=== PATIENT | male | born 1955 | race Caucasian/White ===

== ENCOUNTER → 2021-08-05 08:25 | Outpatient (BNVA) | payer OTHER, SELFPAY | PROVIDERS: Absent Provider Surgery; Family Provider Emergency Medicine Emergency Medical Services; PCP Emergency Medicine Emergency Medical Services; Visit Provider Surgery | DX: Z20.822 Contact with and (suspected) exposure to COVID-19 (principal); Z11.52 Encounter for screening for COVID-19 | CPT/HCPCS: 87635 ==

== ENCOUNTER 2021-08-11 07:06 | Day surgery (SDC) | payer OTHER, SELFPAY ==
[2021-08-08 10:59] VITALS: BMI 25.6
--- NOTE | 2021-08-11 07:29 | P.ANESASSM_ITS ---
Pre-Anesthetic Assessment Pre-Anesthetic Assessment: Height/Weight: Height 1.83 m Weight 85.729 kg Preop Diagnosis: panendoscopy Proposed Procedure: Operation Date: 08/11/21 08:30 Proposed Procedures p EGD Dilation W/ Balloon 53812 [id number] R13.10 K63.5(Not Applicable) - Abdirahman Ruiz MD s Colonoscopy(Not Applicable) - Abdirahman Ruiz MD Was Beta Zainab taken within 24 hours: N/A Was Clonidine taken within 24 hours: N/A Social: Social History: No alcohol and No tobacco (Smokes occ cigar) Exam: Pre-Anes Outpt Exam: alert, oriented x 3, clear to auscultation bilat erally and regular rate & rhythm Airway: Submandibular: WNL Cervical ROM: WNL MP: 2 Additional comments: Missing several History/ROS: No significant history except as noted GI: Comments: dysphagia, polyps Anesthetic Plan: ASA status: 2 Anesthesia: MAC Risk of > 500 ml blood loss (7ml/kg in children): No PFSH Anesthesia PFSH: Medical History (Updated 07/07/21 @ 09:46 by Abdirahman Ruiz MD) Colon polyps Psoriasis Surgical History (Updated 07/07/21 @ 09:43 by Abdirahman Ruiz MD) History of colonoscopy with polypectomy 2017 History of surgery cyst removal on face 2018 Family History (Updated 07/07/21 @ 09:30 by Bree Mohamud) Other Diabetes Denies family history of CAD (coronary artery disease) Dementia Lung disease Cancer Stroke Social History (Updated 07/07/21 @ 09:30 by Bree Mohamud) Smoking and tobacco status: current some day smoker cigars Second hand smoke exposure: No Alcohol intake: never Data Anesthesia Cardiac Studies: No Data to Display
[2021-08-11 07:48] VITALS: BP 133/77; PULSE 73; RESP 18; TEMP 36.3; O2SAT 97
[2021-08-11] MEDS: sodium chloride 0.9% 1,000 ML 30 ML IV (07:57)
--- NOTE | 2021-08-11 08:28 | P.HP_ITS ---
Same Day Surgery H&P Indication for Procedure/HPI DATE OF PROCEDURE: August 11, 2021 CHIEF COMPLAINT/INDICATIONFOR SURGICAL PROCEDURE: EGD/colonoscopy for dysphagia and colon polyps PREOP DIAGNOSIS: panendoscopy PLANNED PROCEDRUE: Operation Date: 08/11/21 08:30 Proposed Procedures p EGD Dilation W/ Balloon 95101 [id number] R13.10 K63.5(Not Applicable) - Abdirahman Ruiz MD s Colonoscopy(Not Applicable) - Abdirahman Ruiz MD Medications/Allergies* Home Medications Medication Instructions Recorded Confirmed Type apremilast 30 mg tablet 30 mg PO DAILY 07/07/21 08/08/21 History Allergies/Adverse Reactions Allergy/AdvReac Type Severity Reaction Status Date / Time Penicillins Allergy Severe sob,hives Verified 08/11/21 07:47 Current Medications: Generic Name Dose Route Start Last Admin Trade Name Freq PRN Reason Stop Dose Admin Sodium Chloride 1,000 mls @ 30 mls/hr 08/11/21 07:30 08/11/21 07:57 Sodium Chloride 0.9% IV 08/12/21 07:29 30 mls/hr .Q24H DANAE Administration Pertinent History/Comorbid Conditions* Medical History (Updated 07/07/21 @ 09:46 by Abdirahman Ruiz MD) Colon polyps Psoriasis Surgical History (Updated 07/07/21 @ 09:43 by Abdirahman Ruiz MD) History of colonoscopy with polypectomy 2017 History of surgery cyst removal on face 2018 Family History (Updated 07/07/21 @ 09:30 by Bree Mohamud) Diabetes Denies family history of CAD (coronary artery disease) Dementia Lung disease Cancer Stroke Social History Smoking and tobacco status: current some day smoker cigars Second hand smoke exposure: No Alcohol intake: never Pertinent Exam Findings alert, oriented x 3 and regular rate & rhythm Recommendations Surgery/Procedure today Coding Level of Care Code Acute Crime Investigator Special Agent for Bobby Matthews
[2021-08-11 09:23] VITALS: BP 95/68; PULSE 64; RESP 16; TEMP 36.1; O2SAT 92
--- NOTE | 2021-08-11 09:27 | ANE.PACU2 ---
Inpatient post-anesthesia follow up: Airway intact: Yes Vital signs: Temperature 97.4 F Pulse Rate 73 Respiratory Rate 18 Blood Pressure 133/77 Pulse Oximetry 97 Oxygen Delivery Me thod Room Air Oxygen Flow Rate Fraction of Inspir ed Oxygen Hydration adequate: Yes Nausea and vomiting: No Pain level: 1 Mental status: Baseline
[2021-08-11 09:37] VITALS: BP 90/58; PULSE 62; RESP 16; O2SAT 95
== END 2021-08-11 09:53 | disposition home or self-care (01) ==
PROVIDERS: PCP Emergency Medicine Emergency Medical Services; Visit Provider Surgery
PROC: (CPT 43239; principal; 2021-08-11 08:30)
PROC: 0DJD8ZZ Inspection of Lower Intestinal Tract, Via Natural or Artificial Opening Endoscopic (ICD-10-PCS; CPT 45378; 2021-08-11 08:30)
DX: Z86.010 Personal history of colon polyps (principal); R13.10 Dysphagia, unspecified; D12.0 Benign neoplasm of cecum; D12.4 Benign neoplasm of descending colon; K57.30 Diverticulosis of large intestine without perforation or abscess without bleeding; K64.8 Other hemorrhoids; K29.80 Duodenitis without bleeding; K44.9 Diaphragmatic hernia without obstruction or gangrene; K29.70 Gastritis, unspecified, without bleeding; K22.2 Esophageal obstruction; F17.290 Nicotine dependence, other tobacco product, uncomplicated
CPT/HCPCS: 43239; 45380; 88305; 96360; 96361; J2704; J7030

== ENCOUNTER 2022-07-20 05:59 | Outpatient (CLI) | payer OTHER, SELFPAY ==
--- NOTE | 2022-07-20 | USCV_ITS ---
Al Mcgraw Age: 67 Gender: M : 1955 Exam Date: 07/20/2022 06:24 Ordering Phys: Endy Bashir DO Technologist: Agapito Kat [place]am [place] [facility] [place]: screening HISTORY: Diameter (cm) AP x Transverse x Length Velocity (cm/s) Waveform Prox Aorta: 1.73 x 1.20 x 104.00 Mid Aorta: 2.55 x 2.69 x 146.90 Distal Aorta: 2.17 x 2.23 x 131.70 Right Iliac Prox: 1.19 x 1.30 x 138.60 Left Iliac Prox: 1.49 x 1.35 x 147.80 Stent Prox Landing x x Aneurysmal Sac Max x x Lt Lat Sac Dim Rt Lat Sac Dim Stent Dist Landing x x Right Iliac Stent x x Left Iliac Stent x x Right Renal Art Left Renal Art FINDINGS: Comparison: none available. Ectatic abdominal aorta with evidence of atherosclerotic plaque noted. No evidence of abdominal aortic aneurysm. There is evidence of atherosclerotic plaque no significan stenosis in the right common iliac artery. There is evidence of atherosclerotic plaque no significan stenosis in the left common iliac artery. CONCLUSIONS Ectatic aorta with no aneurysm. Dr. Yesenia Jimenez DO (Electronically Signed) Final Date: 20 July 2022 07:47 S
== END 2022-07-20 06:00 | disposition home or self-care (01) ==
LOC: RAD 06:00
PROVIDERS: PCP Emergency Medicine Emergency Medical Services; Visit Provider Emergency Medicine Emergency Medical Services
DX: Z13.6 Encounter for screening for cardiovascular disorders (principal); I77.819 Aortic ectasia, unspecified site
CPT/HCPCS: 76706

== ENCOUNTER 2025-08-27 09:55 | Outpatient (CLI) | payer OTHER, SELFPAY | END 2025-08-27 09:56 | disposition home or self-care (01) | LOC: SLEEP 09:57 | PROVIDERS: PCP Emergency Medicine Emergency Medical Services; Referring Provider Family Medicine Geriatric Medicine; Visit Provider Internal Medicine Pulmonary Disease | DX: Z01.89 Encounter for other specified special examinations (principal) | CPT/HCPCS: G0399 ==